=== PATIENT | female | born 1965 | race Asian ===

== ENCOUNTER 2017-08-17 18:57 | Emergency (ER) | payer BC ==
[~2017-08-17] VITALS: Ht 154.9 cm; Wt 55.3 kg
[2017-08-17 19:15] VITALS: Ht 154.9 cm; Wt 55.3 kg
[2017-08-17 20:31] VITALS: BP 139/89
== END 2017-08-17 20:31 | disposition home or self-care (01) ==
LOC: ED 18:57
DX: N39.0 Urinary tract infection, site not specified (principal); I10 Essential (primary) hypertension